=== PATIENT | female | born 1970 | race Two or more races ===

== ENCOUNTER 2019-11-10 17:01 | Emergency (ER) | payer OTHER ==
[~2019-11-10] VITALS: Ht 157.5 cm; Wt 76.3 kg
--- NOTE | 2019-11-10 17:28 | NUR ---
THIS IS A 48 YO FEMALE COMING IN FOR INTERMITTENT MIGRAINE FOR PAST TWO WEEKS, N/V STARTING TODAY. BORRERO IS DESCRIBED PRESSURE AND THROBBING TO LEFT SIDE OF HEAD. PATIENT HAS HX OF MIGRAINES, PRESCRIBED SUMATRIPTAN, HELPED IN THE PAST, NOT CURRENTLY. A&OX4, DENIES LOC, +SENSITIVITY TO LIGHT. SPO2 AND BP MONITORING IN PLACE, VSS, NADN. CALL LIGHT IN REACH. ROOM LIGHTS DIMMED FOR PATIENT COMFORT
[2019-11-10] MEDS ORDERED: DIPHENHYDRAMINE 50 MG/ML, 1ML ONE (18:23)
[2019-11-10] MEDS ORDERED: METOCLOPRAMIDE 5 MG/ML, 2ML ONE (18:24)
[2019-11-10] MEDS ORDERED: KETOROLAC 30 MG/1 ML ONE ×2 (18:24→20:11)
[2019-11-10] MEDS ORDERED: KETOROLAC 30 MG/1 ML IVPush ONE ×2 (18:30→20:00)
[2019-11-10] MEDS ORDERED: METOCLOPRAMIDE 5 MG/ML, 2ML IVPush ONE (18:30)
[2019-11-10] MEDS ORDERED: DIPHENHYDRAMINE 50 MG/ML, 1ML IVPush ONE (18:30)
[2019-11-10] MEDS ORDERED: SODIUM CHLORIDE 0.9% 1,000ML IVBOLUS ONE (18:30)
[2019-11-10] MEDS ORDERED: SODIUM CHLORIDE FLUSH 10ML SYR IVF ONE (18:30)
--- NOTE | 2019-11-10 18:54 | NUR ---
PATIENT MEDICATED PER EMAR, IVF RUNNING
[2019-11-10] MEDS ORDERED: PROCHLORPERAZINE 5 MG/ML, 2ML IVPush ONE (20:00)
[2019-11-10] MEDS ORDERED: PROCHLORPERAZINE 5 MG/ML, 2ML ONE (20:11)
--- NOTE | 2019-11-10 20:18 | NUR ---
PATIETN MEDICATED PER EMAR, TOLERATED WELL
[2019-11-10 21:00] VITALS: BP 120/63
[2019-11-10] MEDS ORDERED: DEXAMETHASONE 4 MG TABLET ONE (21:10)
--- NOTE | 2019-11-10 21:11 | NUR ---
TASK RN: PT REPORTS IMPROVED BORRERO WITH MEDICATIONS. GROSS NEURO INTACT. IV DC'D, PT OFF MONITORING AND UP TO DRESS SELF. AWAITING DC INSTRUCTIONS.
--- NOTE | 2019-11-10 21:28 | NUR ---
Patient medicated per emar, tolerated well. Patient given discharge instructions and they have confirmed that they understand the instructions. Patient ambulatory with steady gait.
[2019-11-10] MEDS ORDERED: DEXAMETHASONE 4 MG/ML, 1ML IVPush ONE (21:30)
[2019-11-10] MEDS ORDERED: DEXAMETHASONE 4 MG TABLET PO ONE (21:30)
== END 2019-11-10 21:31 | disposition home or self-care (01) ==
LOC: ED 18:41
DX: G43.009 Migraine without aura, not intractable, without status migrainosus (principal); R11.2 Nausea with vomiting, unspecified; M54.2 Cervicalgia; J45.909 Unspecified asthma, uncomplicated
CPT/HCPCS: 96361; 96374; 96375; 96376; 99284; J0780; J1200; J1885; J2765; J7030